=== PATIENT | female | born 1995 | race Caucasian/White ===

== ENCOUNTER 2016-10-10 16:52 | Emergency (ER) | payer OTHER ==
[~2016-10-10] VITALS: Ht 160 cm; Wt 62.6 kg
[2016-10-10 17:26] VITALS: BP 135/81
== END 2016-10-10 20:25 | disposition left against medical advice (07) ==
LOC: ED 16:52
DX: Z53.21 Procedure and treatment not carried out due to patient leaving prior to being seen by health care provider (principal)